=== PATIENT | male | born 1990 | race Hispanic/Latino ===

== ENCOUNTER 2020-11-24 13:36 | Emergency (ER) | payer OTHER ==
[~2020-11-24] VITALS: Ht 170.2 cm; Wt 96.6 kg
== END 2020-11-24 14:57 | disposition home or self-care (01) ==
LOC: ER 13:55
DX: R13.10 Dysphagia, unspecified (principal); R09.89 Other specified symptoms and signs involving the circulatory and respiratory systems
CPT/HCPCS: 70360; 99282

== ENCOUNTER → 2023-12-29 | Day surgery (SDC) | payer OTHER ==
[~2023-12-29] MED LIST: DICYCLOMINE HCL20 MG PO; FENTANYL CITRATE/PF 100MCG/2 ML INJ ONE; LIDOCAINE HCL 2% LOCAL INJ 5 ML SDV VIAL INJ ONE; MIDAZOLAM HCL 2 MG/2 ML VIAL ONE; PROPOFOL IV EMULSION 10 MG/ML 20 ML VIAL ONE
[2023-12-29] MEDS: LACTATED RINGER'S 1,000 ML ONE (10:53)
[2023-12-29 12:09] VITALS: TEMP 98.1
[2023-12-29 12:40] VITALS: BP 139/68; PULSE 79; RESP 16; O2SAT 97
== END | disposition home or self-care (01) ==
LOC: OR 10:32
PROVIDERS: ATTEND Internal Medicine Gastroenterology
DX: K29.50 Unspecified chronic gastritis without bleeding (principal); K21.00 Gastro-esophageal reflux disease with esophagitis, without bleeding; K62.89 Other specified diseases of anus and rectum; R19.4 Change in bowel habit; K64.8 Other hemorrhoids; E66.9 Obesity, unspecified; R74.8 Abnormal levels of other serum enzymes; F41.9 Anxiety disorder, unspecified; Z68.39 Body mass index [BMI] 39.0-39.9, adult
CPT/HCPCS: 43239; 45380; J2001; J2250; J2704; J3010; J7121; 45378

== ENCOUNTER 2023-12-30 13:36 | Emergency (ER) | payer OTHER ==
[~2023-12-30] VITALS: Ht 170.2 cm; Wt 112.5 kg
[2023-12-30 13:54] VITALS: TEMP 98.3
[2023-12-30] MEDS: SODIUM CHLORIDE 0.9% 1000ML 1,000 ML IV STA (14:17)
[2023-12-30] MEDS: ONDANSETRON HCL INJ 2MG/ML 2ML 2 MG/ML VIAL IV STA (14:19)
[2023-12-30 14:52] LABS: BASOPHILS # (AUTO) 0.1 (0.0-0.1); BASOPHILS % 0.7 % (0.0-1.0); EOSINOPHILS # (AUTO) 0.3 (0.0-0.4); EOSINOPHILS % 3.9 % (0.0-6.0); HEMATOCRIT 45.6 % (38.2-49.6); HEMOGLOBIN 15.1 g/dL (14.0-18.0); LYMPHOCYTES # (AUTO) 2.9 (1.0-3.2); LYMPHOCYTES % 42.2 % (18.0-39.1); MEAN CORPUSCULAR HEMOGLOBIN 28.9 pg (28-32); MEAN CORPUSCULAR HGB CONC 33.1 g/dL (31-35); MEAN CORPUSCULAR VOLUME 87.4 fL (81-99); MONOCYTES # (AUTO) 0.7 (0.2-0.8); MONOCYTES % 9.8 % (4.4-11.3); NEUTROPHILS % 43.3 % (38.7-80.0); PLATELET COUNT 391 x10e3/uL (140-360); RED BLOOD COUNT 5.22 x10e6/uL (4.3-5.7); RED CELL DISTRIBUTION WIDTH 12.4 % (11.7-14.4); WHITE BLOOD COUNT 6.92 x10e3/uL (4.8-10.8)
[2023-12-30 15:07] LABS: INR 0.92
[2023-12-30 15:08] LABS: PARTIAL THROMBOPLASTIN TIME 30.9 seconds (23.8-35.5)
[2023-12-30 15:15] VITALS: PULSE 77; RESP 16
[2023-12-30 15:16] LABS: ALANINE AMINOTRANSFERASE 50 IU/L (0-55); ALBUMIN 4.3 g/dL (3.5-5.0); ALKALINE PHOSPHATASE 76 IU/L (40-150); ANION GAP 18.6 mmol/L (8-16); BILIRUBIN,TOTAL 0.7 mg/dL (0.2-1.2); BLOOD UREA NITROGEN 9 mg/dL (7-26); BUN/CREATININE RATIO 10 (6-25); CALCIUM 9.7 mg/dL (8.4-10.2); CARBON DIOXIDE 21 mmol/L (22-29); CHLORIDE 101 mmol/L (98-107); CREATINE KINASE 313 IU/L (30-200); CREATININE, SERUM 0.94 mg/dL (0.72-1.25); EST GLOMERULAR FILTRATION RATE 109 ML/MIN (>=60); GLUCOSE 78 mg/dL (74-118); LIPASE 24 U/L (8-78); MAGNESIUM 2.1 MG/DL (1.3-2.1); POTASSIUM 3.6 mmol/L (3.5-5.1); SODIUM 137 mmol/L (136-145); TOTAL PROTEIN 8.6 g/dL (6.5-8.1)
[2023-12-30 15:22] LABS: TROPONIN I < 0.001 ng/mL (0-0.300)
[2023-12-30] MEDS ORDERED: IOPAMIDOL 370 MG/ML 100 ML INFUS..BTL INJ ONE (15:35)
[2023-12-30] MEDS ORDERED: DICYCLOMINE HCL20 MG PO (16:49)
[2023-12-30 17:09] VITALS: BP 125/83; PULSE 79; RESP 16; O2SAT 99
== END 2023-12-30 17:09 | disposition home or self-care (01) ==
LOC: ER 13:45
DX: R10.13 Epigastric pain (principal); K21.9 Gastro-esophageal reflux disease without esophagitis
CPT/HCPCS: 36415; 71045; 74177; 80053; 82550; 83690; 83735; 84484; 85025; 85610; 85730; 93005; 99284; J2405; J2470; J7030; Q9967